=== PATIENT | male | born 1995 | race Two or more races ===

== ENCOUNTER 2021-07-09 15:16 | Emergency (ER) | payer OTHER ==
[~2021-07-09] VITALS: Ht 180.3 cm; Wt 80.6 kg
--- NOTE | 2021-07-09 16:01 | RAD ---
EXAM: Left long finger, 3 views. HISTORY: Trauma. COMPARISON: None. FINDINGS: 3 views of the left long finger are obtained. There has been amputation of the distal long finger soft tissues and portion of the tuft of the third distal phalanx. There are few tiny radiodens ities at the amputation site are likely due to tiny foreign bodies or bone fragments. IMPRESSION: Amputation of the soft tissues of the distal aspect of the third phalanx and portion of t he tuft of the third distal phalanx. Electronically signed by: Toya Cobb MD (07/09/2021 3:58 PM) [id number]
[2021-07-09] MEDS ORDERED: BUPIVACAINE MPF 0.5% 30 ML VIAL. INJ ONE (17:00)
[2021-07-09] MEDS ORDERED: LIDOCAINE 1% PF 2 ML VIAL. INJ ONE (17:00)
[2021-07-09] MEDS ORDERED: PIPERACILLIN/TAZOBACTAM 3.375 GM in IV NORMAL SALINE 50ML 50 ML IV ONE (17:30)
[2021-07-09 18:52] VITALS: BP 140/62
[2021-07-09] MEDS ORDERED: HYDR-2761 PO (19:12)
[2021-07-09] MEDS ORDERED: CEPH500T PO (19:12)
--- NOTE | 2021-07-09 19:14 | PHYS DOC ---
Past Medical History Past Surgical History: No Surgical History Smoking Status: Never Smoker Alcohol Use: Occasionally General Adult EDM: Chief Complaint: FINGER INJURY HPI: HPI: Patient is a 26 year old [place]-speaking male presented to the ED today with left middle finger avulsion. Patient states he was working with a table saw and accidentally cut himself. Patient is right-handed. Pastor line was used for [place] Review of Systems: Review of Systems: Constitutional: Denies fever or chills. [] Musculoskeletal: Denies back pain or joint pain. [] Integument: Reports left middle finger skin avulsion Neurologic: Denies headache, focal weakness or sensory changes. [] Psychiatric: Denies depression or anxiety. [] Heart Score: C/O Chest Pain: N/A Risk Factors: Risk Factors: DM, Current or recent (<one month) smoker, HTN, HLP, family history of CAD, obesity. Risk Scores: Score 0 - 3: 2.5% MACE over next 6 weeks - Discharge Home Score 4 - 6: 20.3% MACE over next 6 weeks - Admit for Clinical Observation Score 7 - 10: 72.7% MACE over next 6 weeks - Early Invasive Strategies Current Medications: Current Medications Medications (Trade) Dose Ordered Sig/Emilee Start Time Stop Time Status Last Admin Dose Admin Bupivacaine HCl (Sensorcaine Mpf 0.5%) 30 ml 1X ONCE 07/09/21 17:00 07/09/21 17:01 DC 07/09/21 17:27 30 ML Lidocaine HCl (Xylocaine-Mpf 1% 2ml Vial) 2 ml 1X ONCE 07/09/21 17:00 07/09/21 17:01 DC 07/09/21 17:26 2 ML Piperacillin Sod/ Tazobactam Sod 3.375 gm/Sodium Chloride 50 ml @ 100 mls/hr 1X ONCE 07/09/21 17:30 07/09/21 17:59 DC 07/09/21 17:21 100 MLS/HR Allergies: Allergies: Allergies Coded Allergies Type Severity Reaction Last Updated Verified No Known Drug Allergies 07/09/21 No Physical Exam: PE: Constitutional: Well developed, well nourished, no acute distress, non-toxic appearance. [] Skin: Left middle finger distal and without skin avulsion roughly 6 x 3 cm. Range of motion is intact to the left middle finger. Adequate sensation to the finger. +2 left radial pulse. Cap refill less than 2 seconds in the left middle finger. Sensation Back: No tenderness, no CVA tenderness. [] Extremities: No tenderness, no cyanosis, no clubbing, ROM intact, no edema. [] Neurologic: Alert and oriented X 3, normal motor function, normal sensory function, no focal deficits noted. [] Psychologic: Affect normal, judgement normal, mood normal. [] Current Patient Data: Vital Signs: Vital Signs Date Time Temp Pulse Resp B/P (MAP) Pulse Ox O2 Delivery O2 Flow Rate FiO2 07/09/21 17:00 58 20 121/79 (93) 98 Room Air 07/09/21 15:28 98.2 98.2 EKG: EKG: [] Radiology/Procedures: Radiology/Procedures: []PROCEDURE: FINGER(S) LEFT EXAM: Left long finger, 3 views. HISTORY: Trauma. COMPARISON: None. FINDINGS: 3 views of the left long finger are obtained. There has been amputation of the distal long finger soft tissues and portion of the tuft of the third distal phalanx. There are few tiny radiodensities at the amputation site are likely due to tiny foreign bodies or bone fragments. IMPRESSION: Amputation of the soft tissues of the distal aspect of the third phalanx and portion of the tuft of the third distal phalanx. Electronically signed by: Toya De La Rosa MD (07/09/2021 3:58 PM) [id number] DICTATED and SIGNED BY: TOYA DE LA ROSA MD DATE: 07/09/21 [id number] Laceration/Wound Repair Wound Location: Left middle finger Wound's Depth, Shape: Horizontal Wound Length (cm): Approximately 6 x 3 centimeters Wound Explored: clean Irrigated w/ Saline (ccs): 1000 Betadine Prep?: Yes Anesthesia: Digital block was done with 1% of lidocaine and bupivacaine Volume Anesthetic (ccs): Approximately 14 cc Wound Repaired With: Ethilon Suture Size/Type: 3.0/interrupted sutures Number of Sutures:12 Progress : Wound was covered with nonstick dressing Course & Med Decision Making: Course & Med Decision Making Pertinent Labs and Imaging studies reviewed. (See chart for details) This is a 26-year-old male patient presenting to the ED today with left middle finger avulsion. Left middle finger x-rays interpreted by radiologist were noted for amputation of the soft tissues of the distal aspect of the third phalanx and portion of the tuft of the third distal phalanx. Patient was given Zosyn in the ED, tetanus is up-to-date. I spoke with Dr.Dempewolf chatman, he states we try and close the finger and have him f/u with his office. He will need to call the office tomorrow to get an appointment. D/c on cephalaxin. Finger was closed by me as noted in procedures Dragon Disclaimer: Dragon Disclaimer: This electronic medical record was generated, in whole or in part, using a voice recognition dictation system. Departure Departure Impression: Primary Impression: Avulsion of fingernail of left hand Additional Impression: Open fracture of tuft of distal phalanx of finger Disposition: 01 HOME / SELF CARE / HOMELESS Condition: STABLE Referrals: NO PCP (PCP) ANNABELLA DUPREE DO call him tomorrow for appointment Patient Instructions: Avulsion Fracture Additional Instructions: You have a fracture of the left middle finger. Please contact the provided orthopedic doctor tomorrow morning and set up an appointment in the clinic. Please take the prescribed antibiotics until completed. Have the dressing removed by the orthopedic doctor when he sees you this week or next week. If he does not see you in the next 5 days remove the dressing and keep it open to air. Come back to the ED at any point wound condition worsens Scripts Hydrocodone Bit/Acetaminophen (HYDROCODONE-APAP 5-325 ) 1 Tab Tablet 1 TAB PO PRN Q6HRS PRN for PAIN, #20 TAB 0 Refills Prov: CHRISTIAN CARTER FORK LIFT TECHNICIAN 07/09/21 Cephalexin (CEPHALEXIN) 500 Mg Tablet 1 TAB PO QID, #40 TAB Prov: CHRISTIAN CARTER FORK LIFT TECHNICIAN 07/09/21 CHRISTIAN CARTER APRN Jul 09, 2021 19:14
== END 2021-07-09 19:28 | disposition home or self-care (01) ==
LOC: ER 15:16
DX: S62.633B Displaced fracture of distal phalanx of left middle finger, initial encounter for open fracture (principal); W29.8XXA Contact with other powered hand tools and household machinery, initial encounter; Y93.89 Activity, other specified; Y92.89 Other specified places as the place of occurrence of the external cause; Y99.8 Other external cause status
CPT/HCPCS: 12004; 73140; 96365; 99285; J2543; J3490